=== PATIENT | male | born 1995 | race Caucasian/White ===

== ENCOUNTER 2017-10-30 21:46 | Emergency (ER) | payer MEDICAID ==
[~2017-10-30] VITALS: Ht 170.2 cm; Wt 68.5 kg
[2017-10-30 21:48] VITALS: BP 143/84
[2017-10-30] MEDS ORDERED: DEXAMETHASONE 4 MG TABLET PO STA (22:44)
[2017-10-30] MEDS ORDERED: DEXAMETHASONE 4 MG TABLET ONE ×2 (22:48→22:56)
[2017-10-30] MEDS ORDERED: BENZONATATE 100 MG CAPSULE ONE ×2 (22:57→23:00)
[2017-10-30] MEDS ORDERED: BENZONATATE 100 MG CAPSULE PO ONE (23:00)
== END 2017-10-30 23:06 | disposition home or self-care (01) ==
LOC: ED 23:01
DX: J20.8 Acute bronchitis due to other specified organisms (principal); J02.0 Streptococcal pharyngitis
CPT/HCPCS: 71046; 99284

== ENCOUNTER 2019-01-19 10:43 | Emergency (ER) | payer SELFPAY ==
[~2019-01-19] VITALS: Ht 170.2 cm; Wt 68.4 kg
[2019-01-19 10:55] VITALS: BP 138/77
[2019-01-19] MEDS ORDERED: FLUORESCEIN OPHTHALMIC 1 MG STRIP EACHEYE ONE (11:00)
[2019-01-19] MEDS ORDERED: PROPARACAINE OPHTH 0.5%, 15ML EACHEYE ONE (11:00)
[2019-01-19] MEDS ORDERED: FLUORESCEIN OPHTHALMIC 1 MG STRIP ONE (11:45)
[2019-01-19] MEDS ORDERED: PROPARACAINE OPHTH 0.5%, 15ML ONE (11:46)
--- NOTE | 2019-01-19 11:54 | NUR ---
ATTEMPTED TO IRRIGATE PT'S EYE, PT ONLY ABLE TO TOLERATE 250ML NS. MD OKEEFE AT BEDSIDE
== END 2019-01-19 12:56 | disposition home or self-care (01) ==
LOC: ED 12:46
DX: T15.12XA Foreign body in conjunctival sac, left eye, initial encounter (principal); W31.89XA Contact with other specified machinery, initial encounter; Y93.89 Activity, other specified; Y92.89 Other specified places as the place of occurrence of the external cause; Y99.8 Other external cause status
CPT/HCPCS: 65205; 99284

== ENCOUNTER 2020-04-09 10:11 | Emergency (ER) | payer SELFPAY ==
[~2020-04-09] VITALS: Ht 170.2 cm; Wt 69.3 kg
[2020-04-09 10:17] VITALS: BP 116/81
--- NOTE | 2020-04-09 10:31 | NUR ---
FIRST CONTACT WITH PT. PT MOVING WATER HEATERS ABOUT 8 DAYS AGO, MIDDLE BACK STARTED HURTING SHORTLY AFTER. DENIED URINARY SYMPTOMS. PT'S AOX4. RESPS EVEN AND UNLABORED. PA AT BEDSIDE TO EVALUATE AT THIS TIME.
[2020-04-09] MEDS ORDERED: DIAZEPAM 5 MG TABLET ONE (10:47)
[2020-04-09] MEDS ORDERED: OXYcodone/APAP 5/325MG TABLET ONE (10:48)
[2020-04-09] MEDS ORDERED: KETOROLAC 30 MG/1 ML ONE (10:48)
--- NOTE | 2020-04-09 10:54 | NUR ---
pt medicated per emar. pt tolerated well.
[2020-04-09] MEDS ORDERED: DIAZEPAM 5 MG TABLET PO ONE (11:00)
[2020-04-09] MEDS ORDERED: KETOROLAC 30 MG/1 ML IM ONE (11:00)
[2020-04-09] MEDS ORDERED: OXYcodone/APAP 5/325MG TABLET PO ONE (11:00)
--- NOTE | 2020-04-09 11:46 | NUR ---
PT RESTING ON GUHAYES. PT'S AOX4. RESPS EVEN AND UNLABORED.
== END 2020-04-09 12:29 | disposition home or self-care (01) ==
LOC: ED 11:16
DX: S39.012A Strain of muscle, fascia and tendon of lower back, initial encounter (principal); X58.XXXA Exposure to other specified factors, initial encounter; Y93.89 Activity, other specified; Y92.89 Other specified places as the place of occurrence of the external cause; Y99.8 Other external cause status
CPT/HCPCS: 96372; 99283; J1885